=== PATIENT | male | born 2005 | race Hispanic/Latino ===

== ENCOUNTER 2025-07-26 17:56 | Emergency (ER) | payer OTHER ==
[~2025-07-26] VITALS: Ht 167.6 cm; Wt 81.8 kg
[2025-07-26] MEDS: CYCLOBENZAPRINE 5 MG TABLET PO ONE (20:51)
[2025-07-26] MEDS: KETOROLAC 60 MG/2 ML VIAL IM ONE (20:52)
[2025-07-26] MEDS ORDERED: NAPR-837 PO (21:05)
[2025-07-26] MEDS ORDERED: CYCL5TAB4 PO (21:05)
[2025-07-26 21:17] VITALS: BP 147/98; TEMP 97; O2SAT 98
== END 2025-07-26 21:20 | disposition home or self-care (01) ==
LOC: EDBD 17:56 → M ED 17:56
DX: S13.4XXA Sprain of ligaments of cervical spine, initial encounter (principal); S00.03XA Contusion of scalp, initial encounter; Y92.9 Unspecified place or not applicable; Y93.9 Activity, unspecified; Y99.9 Unspecified external cause status; V49.50XA Passenger injured in collision with unspecified motor vehicles in traffic accident, initial encounter; F10.10 Alcohol abuse, uncomplicated; Z79.899 Other long term (current) drug therapy
CPT/HCPCS: 70450; 72125; 96372; 99284; J1885